=== PATIENT | male | born 1940 | race Caucasian/White ===

== ENCOUNTER 2022-07-20 06:39 | Emergency (ER) | payer MEDICARE ==
[~2022-07-20] VITALS: Ht 170.2 cm; Wt 79.4 kg
[~2022-07-20 06:39] MED LIST: ATOR40TA PO; CHLO25B PO; DOCU100 PO; ELIQUIS5 M2 PO; LISI20 PO; OMEP20ER PO; Percocet 5-3251 EACH PO
== END 2022-07-20 08:27 | disposition home or self-care (01) ==
LOC: ER 06:39
DX: R04.0 Epistaxis (principal); Z79.01 Long term (current) use of anticoagulants; Z79.899 Other long term (current) drug therapy; Z88.0 Allergy status to penicillin; Z88.5 Allergy status to narcotic agent
CPT/HCPCS: 99283

== ENCOUNTER 2022-07-22 09:02 | Emergency (ER) | payer MEDICARE ==
[~2022-07-22] VITALS: Ht 170.2 cm; Wt 86.2 kg
== END 2022-07-22 11:25 | disposition home or self-care (01) ==
LOC: ER 09:02
DX: Z46.89 Encounter for fitting and adjustment of other specified devices (principal); Z88.0 Allergy status to penicillin; Z88.5 Allergy status to narcotic agent; Z79.01 Long term (current) use of anticoagulants; Z79.899 Other long term (current) drug therapy; Z86.73 Personal history of transient ischemic attack (TIA), and cerebral infarction without residual deficits; Z95.1 Presence of aortocoronary bypass graft
CPT/HCPCS: A9270